=== PATIENT | female | born 1960 | race Caucasian/White ===

== ENCOUNTER → 2018-09-22 | Day surgery (SDC) | payer BC ==
[2018-09-21 17:53] LABS: ANION GAP 16.6 mmol/L (8-16); CALCIUM 10.3 mg/dL (8.4-10.2); CREATININE, SERUM 1.01 mg/dL (0.57-1.11)
[2018-09-21 17:55] LABS: POTASSIUM 2.6 mmol/L (3.5-5.1)
[~2018-09-22] MED LIST: ACETAMINOPHEN 1000 MG/100 ML IV ONE; ASPIRIN81 MG PO; ATORVASTATIN CA20 MG PO; BUPIVACAINE HCL 0.5% INJ 30 ML VIAL INJ ONE; CLINDAMYCIN PHOS 900MG/ 50ML 50 ML IV ONE; DEXAMETHASONE SOD PHOS INJ 4 MG/ML VIAL ONE; FENTANYL CITRATE/PF 100MCG/2 ML INJ ONE; IBUPROFEN 800MG/ 250ML 250 ML IV ONE; LEXAPRO10 MG PO; LIDOCAINE HCL 2% LOCAL INJ 5 ML SDV VIAL INJ ONE; MIDAZOLAM HCL 2 MG/2 ML VIAL ONE; ONDANSETRON HCL INJ 2MG/ML 2ML 2 MG/ML VIAL ONE; PANTOPRAZOLE SO20 MG PO; POTASSIUM CHLORIDE 20MEQ/100ML IVPB IV ONE; PROPOFOL IV EMULSION 10 MG/ML 20 ML VIAL ONE; SEVOFLURANE INHAL SOLN 250 ML PEN BTL ONE; TRIAMTERENE-HCTZ1 EA PO
[2018-09-22 12:45] VITALS: BP 142/73
--- NOTE | 2018-09-22 13:20 | Operative Report ---
DATE OF PROCEDURE: 09/22/2018 SURGEON: Gordon Borges MD [employer] INVESTIGATOR: Kyle Morrison PA-C. PREOPERATIVE DIAGNOSIS: Left ankle fibula fracture. POSTOPERATIVE DIAGNOSIS: Left ankle fibula fracture. PROCEDURE: Open reduction and internal fixation, left fibula. INDICATIONS: The patient is a 57-year-old lady, who is approximately eight days status post a fracture of her left ankle. She delayed seeking orthopedic treatment secondary to having some interest in pursuing litigation. She presented to my office yesterday. We splinted her and recommended open reduction with internal fixation. The risks and benefits were explained. She stated she understood and wished to proceed. PROCEDURE IN DETAIL: The patient was brought to the operating room and placed under general anesthetic. She received prophylactic antibiotics in the holding area. Her left lower extremity was prepped and draped in a sterile manner. A preoperative time-out was performed. The extremity was exsanguinated and a proximal tourniquet was inflated to 300 mmHg. A lateral incision was made. The fracture site was carefully exposed. A limited periosteal stripping was performed. The fracture was quite comminuted and the bone was soft. An eight hole one-third semitubular plate was then placed onto the distal fibula. The inferior-most portion was contoured. This was placed in a way to provide some posterior buttress force. This was fixed with a combination of cortical and locking screws. Intraoperative x-rays confirmed anatomic reduction and good positioning of the hardware. The wound was irrigated. A 10 mL of 0.5% Marcaine without epinephrine was placed around the incision. The incision was closed with subcuticular Vicryl and nylon stitches. A sterile bandage was applied. The patient was extubated and transported to the recovery room in stable condition. Blood loss was less than 5 mL. All needle and sponge counts were correct. Gordon Borges MD DR/DELMA /[id number]
== END | disposition home or self-care (01) ==
LOC: OR 09:58
PROVIDERS: ATTEND Specialist
DX: S82.62XA Displaced fracture of lateral malleolus of left fibula, initial encounter for closed fracture (principal); E78.00 Pure hypercholesterolemia, unspecified; I10 Essential (primary) hypertension; K21.9 Gastro-esophageal reflux disease without esophagitis; F32.9 Major depressive disorder, single episode, unspecified; W18.39XA Other fall on same level, initial encounter; Y92.512 Supermarket, store or market as the place of occurrence of the external cause; Z88.1 Allergy status to other antibiotic agents; Z91.040 Latex allergy status; Z68.30 Body mass index [BMI] 30.0-30.9, adult
CPT/HCPCS: 27792; 36415 ×2; 76000; 80048; 84132; 93005; C1713 ×5; J0131; J1100; J2001; J2250; J2405; J2704; J3010; J3480

== ENCOUNTER → 2019-03-05 | Outpatient (CLI) | payer BC ==
[~2019-03-05] MED LIST changes: -ACETAMINOPHEN 1000 MG/100 ML IV ONE; -BUPIVACAINE HCL 0.5% INJ 30 ML VIAL INJ ONE; -CLINDAMYCIN PHOS 900MG/ 50ML 50 ML IV ONE; -DEXAMETHASONE SOD PHOS INJ 4 MG/ML VIAL ONE; -FENTANYL CITRATE/PF 100MCG/2 ML INJ ONE; +GADOBENATE DIMEGLUMINE 1 ML IV ONE; -IBUPROFEN 800MG/ 250ML 250 ML IV ONE; +IOPAMIDOL 300 MG/ML 15ML VIAL IT ONE; +LIDOCAINE HCL 1% LOCAL INJ 20 ML VIAL ONE; -LIDOCAINE HCL 2% LOCAL INJ 5 ML SDV VIAL INJ ONE; -MIDAZOLAM HCL 2 MG/2 ML VIAL ONE; -ONDANSETRON HCL INJ 2MG/ML 2ML 2 MG/ML VIAL ONE; -POTASSIUM CHLORIDE 20MEQ/100ML IVPB IV ONE; -PROPOFOL IV EMULSION 10 MG/ML 20 ML VIAL ONE; -SEVOFLURANE INHAL SOLN 250 ML PEN BTL ONE
--- NOTE | 2019-03-05 14:53 | Diagnostic Imaging Report ---
MRI of the right shoulder with contrast. History: Shoulder pain. Anterior subluxation. Fall. Decreased range of motion. Pain not responding to conservative management. Comparison: Arthrogram from the same day Technique: Multiplanar multisequence MRI of the shoulder after the administration of intra-articular gadolinium contrast material. Findings: Rotator cuff: Rotator cuff tendinosis with midsubstance degeneration and articular sided partial tear involving the anterior fibers of the supraspinatus and infraspinatus tendons at the humeral insertion site best seen on coronal image 14. Additionally, there is subscapularis tendinosis. The teres minor tendon is intact. Osseous acromion complex: Type II acromion with mild lateral downsloping. Mild degenerative arthrosis at the acromioclavicular joint with undersurface spurring. Mild subacromial/subdeltoid bursitis. Glenohumeral joint: Degeneration and fraying of the labrum. Chronic appearing tearing of the anterior inferior labrum and chronic appearing deformity of the glenoid consistent with prior anterior inferior shoulder dislocation with relocation. The humeral head is well-seated in the glenoid fossa. Gadolinium contrast material is seen filling the shoulder joint. The articular cartilage surfaces are thinned with fraying and fissuring most pronounced at the inferior glenoid. Biceps tendon: The biceps tendon is intact. Other findings: Negative for muscle denervation or osseous fracture. Impression: Rotator cuff tendinosis with midsubstance degeneration and articular sided partial tear involving the anterior fibers of the supraspinatus and infraspinatus tendons at the humeral insertion site. Sequela of prior anterior inferior shoulder dislocation with relocation. There is chronic appearing tearing of the anterior inferior labrum and chronic appearing deformity of the glenoid with articular cartilage fraying and fissuring most pronounced at the inferior glenoid. Mild subacromial/subdeltoid bursitis. Signed by: Dr. Antonio Fulton M.D. on 03/05/2019 2:49 PM
--- NOTE | 2019-03-05 15:42 | Diagnostic Imaging Report ---
Right shoulder arthrogram History:Anterior subluxation of the right humerus, shoulder pain Modality: Fluoroscopy Approach: Right anterior percutaneous Sedation: None Anesthesia: 1% lidocaine local Technique: After informed written consent was obtained, the right shoulder was localized using fluoroscopy. The skin was marked. After the usual sterile preparation and application of local anesthesia, a 22 gauge spinal needle was advanced into the right shoulder joint using fluoroscopic assistance. Small amount of aerated contrast was injected under fluoroscopic control to confirm intra-articular injection. 15 cc of a mixture of diluted gadolinium in sterile saline was injected during fluoroscopic observation. Disposition: The patient tolerated the procedure well, without immediate complications. The patient was sent to MRI for the subsequent MR arthrogram. Fluoro time: 0.7 minutes Estimated dose: 2.6 mGy JIHAN Impression: Technically successful fluoroscopic guided right shoulder arthrogram. Signed by: Michele Felipe MD on 03/05/2019 3:38 PM
== END ==
LOC: DX 12:09
PROVIDERS: ATTEND Specialist
DX: S43.011A Anterior subluxation of right humerus, initial encounter (principal)
CPT/HCPCS: 23350; 73222; 77002; A9577; J2001; Q9967

== ENCOUNTER → 2022-02-04 | Day surgery (SDC) | payer BC, OTHER ==
[~2022-02-04] MED LIST changes: +ACETAMINOPHEN 1000 MG/100 ML 100 ML IV ONE; +BUPIVACAINE 0.5%/EPI 30 ML SDV INJ ONE; +DEXAMETHASONE SOD PHOS INJ 4 MG/ML SDV ONE; +FENTANYL CITRATE/PF 100MCG/2 ML INJ ONE; -GADOBENATE DIMEGLUMINE 1 ML IV ONE; -IOPAMIDOL 300 MG/ML 15ML VIAL IT ONE; +KETOROLAC TROMETHAMINE 30 MG/ML VIAL ONE; -LIDOCAINE HCL 1% LOCAL INJ 20 ML VIAL ONE; +LIDOCAINE HCL 2% LOCAL INJ 5 ML SDV VIAL INJ ONE; +MIDAZOLAM HCL 2 MG/2 ML VIAL ONE; +MULTI-VITAMIN1 EACH PO; +NEOSTIGMINE 1 MG/ML 10ML VIAL ONE; +ONDANSETRON HCL INJ 2MG/ML 2ML 2 MG/ML VIAL ONE; +POTASSIUM CHLO10 ME1 PO; +POVIDONE IODINE 0.05% 0.05 % ML PO ONE; +PROPOFOL IV EMULSION 10 MG/ML 20 ML VIAL ONE; +SEVOFLURANE INHAL SOLN 250 ML PEN BTL ONE
[2022-02-04 14:00] VITALS: BP 128/78
== END | disposition home or self-care (01) ==
LOC: OR 09:10
PROVIDERS: ATTEND Specialist
DX: T84.7XXA Infection and inflammatory reaction due to other internal orthopedic prosthetic devices, implants and grafts, initial encounter (principal); T84.84XA Pain due to internal orthopedic prosthetic devices, implants and grafts, initial encounter; I10 Essential (primary) hypertension; E78.5 Hyperlipidemia, unspecified; K21.9 Gastro-esophageal reflux disease without esophagitis; K58.9 Irritable bowel syndrome, unspecified; F41.9 Anxiety disorder, unspecified; F32.A Depression, unspecified; Y83.8 Other surgical procedures as the cause of abnormal reaction of the patient, or of later complication, without mention of misadventure at the time of the procedure; Z88.7 Allergy status to serum and vaccine; Z88.1 Allergy status to other antibiotic agents; Z91.040 Latex allergy status; Z01.810 Encounter for preprocedural cardiovascular examination; Z87.81 Personal history of (healed) traumatic fracture; Z79.899 Other long term (current) drug therapy; Z86.16 Personal history of COVID-19
CPT/HCPCS: 20680; 87071; 87075; 87205; 93005; J0131; J0690; J1100; J1885; J2001; J2250; J2405; J2704; J2710; J3010; 76000